=== PATIENT | female | born 1960 | race Caucasian/White ===

== ENCOUNTER 2022-11-19 08:07 | Outpatient (CLI) | payer MEDICAID ==
[~2022-11-19] VITALS: Ht 160 cm; Wt 81.6 kg
[2022-11-19 08:52] VITALS: PULSE 85; RESP 18; O2SAT 99
[2022-11-19] MEDS ORDERED: albuterol 2.5 MG/3 ML nebule NEB ONE (08:55)
== END 2022-11-19 23:59 | disposition home or self-care (01) ==
LOC: RT 08:07
PROVIDERS: ATTEND Nurse Practitioner Family
DX: J44.9 Chronic obstructive pulmonary disease, unspecified (principal); R94.2 Abnormal results of pulmonary function studies
CPT/HCPCS: 94060; 94760